=== PATIENT | female | born 1945 | race Hispanic/Latino ===

== ENCOUNTER → 2018-06-07 | Outpatient (CLI) | payer OTHER ==
[~2018-06-07] MED LIST: ATOR20TA65 PO; EMPA25TA PO; GADODIAMIDE 10 MMOL/20 ML ML IV ONE; LOSA50TA25 PO
== END | disposition home or self-care (01) ==
LOC: RAH 10:00
PROVIDERS: ATTEND Internal Medicine Gastroenterology
DX: N28.1 Cyst of kidney, acquired (principal); R74.9 Abnormal serum enzyme level, unspecified; I13.0 Hypertensive heart and chronic kidney disease with heart failure and stage 1 through stage 4 chronic kidney disease, or unspecified chronic kidney disease; E11.22 Type 2 diabetes mellitus with diabetic chronic kidney disease; N18.2 Chronic kidney disease, stage 2 (mild); I50.9 Heart failure, unspecified; E11.42 Type 2 diabetes mellitus with diabetic polyneuropathy; E78.2 Mixed hyperlipidemia
CPT/HCPCS: 74181; A9579

== ENCOUNTER 2018-08-05 08:04 | Day surgery (SDC) | payer OTHER ==
[2018-08-05] VITALS (8 sets, daily range): BP systolic 135–152; BP diastolic 49–69
[~2018-08-05] VITALS: Ht 149.9 cm; Wt 49.7 kg
[~2018-08-05 08:04] MED LIST changes: -GADODIAMIDE 10 MMOL/20 ML ML IV ONE
[2018-08-05 08:33] LABS: BASOPHILS % (AUTO) 1.5 % (0.0-5.0); EOSINOPHILS % (AUTO) 2.1 % (0.0-8.0); HEMATOCRIT 41.6 % (36-48); LYMPHOCYTES % (AUTO) 18.2 % (21.0-51.0); MEAN CORPUSCULAR HEMOGLOBIN 30.1 pg (27.0-33.0); MEAN CORPUSCULAR HGB CONC 33.8 g/dL (32.0-36.0); MONOCYTES % (AUTO) 7.3 % (3.0-13.0); NEUTROPHILS % (AUTO) 70.9 % (40.0-77.0); PLATELET COUNT (AUTO) 211 K/uL (130-400); RED BLOOD CELL COUNT(AUTO) 4.67 MIL/uL (4.00-5.50); RED CELL DISTRIBUTION WIDTH 14.4 % (11.0-15.5); WHITE BLOOD COUNT (AUTO) 5.9 K/uL (4.8-10.8)
[2018-08-05 08:46] LABS: INR 1.01 (0.85-1.15); PARTIAL THROMBOPLASTIN TIME 27.2 SEC (26.3-35.5); PROTHROMBIN TIME 10.6 SEC (9.6-11.6)
[2018-08-05] MEDS ORDERED: SODIUM CHLORIDE 0.9% 1000ML 1,000 ML IV ONE (09:41)
[2018-08-05] MEDS ORDERED: FENTANYL CITRATE PF 50 MCG/1 ML 2ML VIAL ONE (10:50)
[2018-08-05] MEDS ORDERED: MIDAZOLAM HCL 1 MG/ML 2ML VIAL ONE (10:50)
[2018-08-05] MEDS ORDERED: LIDOCAINE HCL MPF 1% 5ML VIAL ONE (13:47)
== END 2018-08-05 14:10 | disposition home or self-care (01) ==
LOC: DAH 08:04 → EDSTATUS 10:00 → DAH 14:10
PROVIDERS: ATTEND Internal Medicine Gastroenterology
DX: K74.0 Hepatic fibrosis (principal); K72.90 Hepatic failure, unspecified without coma; K76.0 Fatty (change of) liver, not elsewhere classified; E11.9 Type 2 diabetes mellitus without complications; I10 Essential (primary) hypertension; Z79.84 Long term (current) use of oral hypoglycemic drugs; Z98.49 Cataract extraction status, unspecified eye; Z79.899 Other long term (current) drug therapy; E78.5 Hyperlipidemia, unspecified; Z90.49 Acquired absence of other specified parts of digestive tract
CPT/HCPCS: 36415; 47000; 76942; 82948; 85025; 85610; 85730; 88307; 99152; A4606; J2250; J3010; J3490; J7030

== ENCOUNTER → 2018-09-26 | Outpatient (CLI) | payer OTHER | END | disposition home or self-care (01) | LOC: RAH 10:41 | PROVIDERS: ATTEND Family Medicine | DX: M21.379 Foot drop, unspecified foot (principal) | CPT/HCPCS: 70450 ==

== ENCOUNTER → 2019-06-27 | Outpatient (CLI) | payer OTHER ==
[~2019-06-27] MED LIST changes: -LOSA50TA25 PO; +LOSA50TA64 PO
== END | disposition home or self-care (01) ==
LOC: RAH 08:44
PROVIDERS: ATTEND Internal Medicine Gastroenterology
DX: N28.1 Cyst of kidney, acquired (principal); R16.0 Hepatomegaly, not elsewhere classified; K74.3 Primary biliary cirrhosis; I70.0 Atherosclerosis of aorta; Z90.49 Acquired absence of other specified parts of digestive tract
CPT/HCPCS: 76700

== ENCOUNTER → 2019-07-25 | Outpatient (CLI) | payer OTHER ==
[~2019-07-25] MED LIST changes: +IOHEXOL 350 MG/ML 100ML INFUS..BTL IV ONE
== END | disposition home or self-care (01) ==
LOC: RAH 08:22
PROVIDERS: ATTEND Internal Medicine Gastroenterology
DX: N28.1 Cyst of kidney, acquired (principal); I70.0 Atherosclerosis of aorta
CPT/HCPCS: 74170; Q9967

== ENCOUNTER 2019-09-09 06:13 | Day surgery (SDC) | payer OTHER ==
[~2019-09-09] VITALS: Ht 152.4 cm; Wt 59.0 kg
[~2019-09-09 06:13] MED LIST changes: +AMLO5TAB9 PO; +ATOR10TA69 PO; -ATOR20TA65 PO; +INSU100I26 SQ; -IOHEXOL 350 MG/ML 100ML INFUS..BTL IV ONE; +LINA5TAB PO; +METF-526 PO; +SODIUM CHLORIDE 0.9% 1000ML 1,000 ML IV ONE; +URSO500T10 PO
[2019-09-09 07:39] VITALS: BP 137/61
[2019-09-09] MEDS ORDERED: PROPOFOL 10 MG/ML 20ML VIAL IV ONE (08:20)
[2019-09-09 08:35] VITALS: BP 144/61
[2019-09-09 08:40] VITALS: BP 122/69
[2019-09-09 08:45] VITALS: BP 102/85
[2019-09-09 08:50] VITALS: BP 124/59
== END 2019-09-09 09:15 | disposition home or self-care (01) ==
LOC: ENDO 06:13 → DAH 06:13 → ENDO 09:15
PROVIDERS: ATTEND Internal Medicine
DX: R10.13 Epigastric pain (principal); K29.50 Unspecified chronic gastritis without bleeding; K21.0 Gastro-esophageal reflux disease with esophagitis; K31.7 Polyp of stomach and duodenum; K26.9 Duodenal ulcer, unspecified as acute or chronic, without hemorrhage or perforation; K44.9 Diaphragmatic hernia without obstruction or gangrene; K57.30 Diverticulosis of large intestine without perforation or abscess without bleeding; K43.9 Ventral hernia without obstruction or gangrene; K76.0 Fatty (change of) liver, not elsewhere classified; K74.3 Primary biliary cirrhosis; E78.5 Hyperlipidemia, unspecified; I10 Essential (primary) hypertension; E11.9 Type 2 diabetes mellitus without complications; Z86.010 Personal history of colon polyps; Z79.84 Long term (current) use of oral hypoglycemic drugs; Z79.899 Other long term (current) drug therapy; Z90.49 Acquired absence of other specified parts of digestive tract; Z98.890 Other specified postprocedural states
CPT/HCPCS: 43239; 82948 ×2; 88305; A4215; A4221; A4222; A4223; A4606; A4620; A4663; J2704; J7030

== ENCOUNTER → 2020-03-18 | Outpatient (CLI) | payer OTHER ==
[~2020-03-18] MED LIST changes: +ALEN70TA69 PO; +AMLO-257 PO; -AMLO5TAB9 PO; +ESOM20CA39 PO; +GLIM4TAB36 PO; -SODIUM CHLORIDE 0.9% 1000ML 1,000 ML IV ONE
== END | disposition home or self-care (01) ==
LOC: RAH 07:49
PROVIDERS: ATTEND Internal Medicine Gastroenterology
DX: K74.3 Primary biliary cirrhosis (principal)
CPT/HCPCS: 76700; 93975

== ENCOUNTER 2020-03-25 05:35 | Day surgery (SDC) | payer OTHER ==
[2020-03-25] VITALS (7 sets, daily range): BP systolic 122–151; BP diastolic 51–62; PULSE 71–76; RESP 16–20; TEMP 96.7–97.8
[2020-03-25] MEDS ORDERED: SODIUM CHLORIDE 0.9% 1000ML 1,000 ML IV ONE (06:09)
[2020-03-25] MEDS ORDERED: PROPOFOL 10 MG/ML 20ML VIAL IV ONE ×2 (07:01)
[2020-03-25] MEDS ORDERED: LIDOCAINE HCL 1% 20 ML VIAL ONE (07:01)
[2020-03-25] MEDS ORDERED: GLYCOPYRROLATE 1 MG/5 ML SYRINGE ONE (07:02)
--- NOTE | 2020-03-25 09:00 | NUR ---
PT DISCHARGED HOME. STABLE. Addendum: 03/25/20 at 0901 by GENARO RUIZ RN RN DISCHARGED AT 0840
== END 2020-03-25 08:55 | disposition home or self-care (01) ==
LOC: DAH 05:35 → ENDO 05:35
PROVIDERS: ATTEND Internal Medicine Gastroenterology
DX: R93.3 Abnormal findings on diagnostic imaging of other parts of digestive tract (principal); K64.0 First degree hemorrhoids; K57.30 Diverticulosis of large intestine without perforation or abscess without bleeding; K74.3 Primary biliary cirrhosis; K21.0 Gastro-esophageal reflux disease with esophagitis; K31.89 Other diseases of stomach and duodenum; K76.0 Fatty (change of) liver, not elsewhere classified; I44.7 Left bundle-branch block, unspecified; I10 Essential (primary) hypertension; E78.5 Hyperlipidemia, unspecified; K21.9 Gastro-esophageal reflux disease without esophagitis; E11.9 Type 2 diabetes mellitus without complications; Z79.84 Long term (current) use of oral hypoglycemic drugs; Z79.899 Other long term (current) drug therapy; Z86.010 Personal history of colon polyps; Z11.59 Encounter for screening for other viral diseases
CPT/HCPCS: 36415; 45378; 82948 ×3; 88305; 88341; 88342; 93005; A4215; A4221; A4222; A4223; A4606; A4620; A4663; J2704 ×2; J3490; J7030; U0003

== ENCOUNTER → 2020-11-16 | Outpatient (CLI) | payer OTHER ==
[~2020-11-16] MED LIST changes: -ALEN70TA69 PO; +ALEN70TA80 PO; -LINA5TAB PO
== END | disposition home or self-care (01) ==
LOC: RAH 07:42
PROVIDERS: ATTEND Internal Medicine Gastroenterology
DX: K76.89 Other specified diseases of liver (principal); K74.3 Primary biliary cirrhosis; R93.2 Abnormal findings on diagnostic imaging of liver and biliary tract; I70.0 Atherosclerosis of aorta; N28.1 Cyst of kidney, acquired
CPT/HCPCS: 76700

== ENCOUNTER 2021-01-11 06:27 | Day surgery (SDC) | payer OTHER ==
[~2021-01-11] VITALS: Ht 149.9 cm; Wt 56.7 kg
[~2021-01-11 06:27] MED LIST changes: +SODIUM CHLORIDE 0.9% 1000ML 1,000 ML IV ONE
[2021-01-11 07:30] VITALS: BP 165/75
[2021-01-11] MEDS ORDERED: GLIP5TAB11 PO ×2 (07:49)
[2021-01-11] MEDS ORDERED: PROPOFOL 10 MG/ML 20ML VIAL IV ONE ×2 (08:42→08:49)
[2021-01-11 08:55] VITALS: BP 101/45
[2021-01-11 09:00] VITALS: BP 111/52
[2021-01-11 09:05] VITALS: BP 119/59
[2021-01-11 09:10] VITALS: BP 124/59
[2021-01-11 09:15] VITALS: BP 126/58
== END 2021-01-11 09:25 | disposition home or self-care (01) ==
LOC: DAH 06:27 → ENDO 06:27
PROVIDERS: ATTEND Internal Medicine
DX: K21.00 Gastro-esophageal reflux disease with esophagitis, without bleeding (principal); K29.70 Gastritis, unspecified, without bleeding; K31.89 Other diseases of stomach and duodenum; K44.9 Diaphragmatic hernia without obstruction or gangrene; I10 Essential (primary) hypertension; E11.9 Type 2 diabetes mellitus without complications; E78.5 Hyperlipidemia, unspecified; R93.2 Abnormal findings on diagnostic imaging of liver and biliary tract; K74.3 Primary biliary cirrhosis; K76.0 Fatty (change of) liver, not elsewhere classified; K64.0 First degree hemorrhoids; Z86.010 Personal history of colon polyps; Z90.49 Acquired absence of other specified parts of digestive tract; Z79.84 Long term (current) use of oral hypoglycemic drugs; Z79.899 Other long term (current) drug therapy; Z20.828 Contact with and (suspected) exposure to other viral communicable diseases
CPT/HCPCS: 43239; 82948 ×2; 93005; A4215; A4221; A4222; A4223; A4606; A4620; A4663; C9803; J2704 ×2; J7030; U0003

== ENCOUNTER → 2021-01-12 | Outpatient (CLI) | payer OTHER ==
[~2021-01-12] MED LIST changes: +GLIP5TAB11 PO; -SODIUM CHLORIDE 0.9% 1000ML 1,000 ML IV ONE
== END | disposition home or self-care (01) ==
LOC: RAH 08:17
PROVIDERS: ATTEND Internal Medicine Gastroenterology
DX: R93.2 Abnormal findings on diagnostic imaging of liver and biliary tract (principal); K74.3 Primary biliary cirrhosis; N28.1 Cyst of kidney, acquired; Z90.49 Acquired absence of other specified parts of digestive tract
CPT/HCPCS: 74170

== ENCOUNTER → 2021-07-12 | Outpatient (CLI) | payer OTHER ==
[~2021-07-12] MED LIST changes: -AMLO-257 PO; -ESOM20CA39 PO; -GLIM4TAB36 PO
== END | disposition home or self-care (01) ==
LOC: RAH 08:33
PROVIDERS: ATTEND Internal Medicine Gastroenterology
DX: N28.1 Cyst of kidney, acquired (principal); R93.2 Abnormal findings on diagnostic imaging of liver and biliary tract; Z90.49 Acquired absence of other specified parts of digestive tract
CPT/HCPCS: 76700

== ENCOUNTER → 2022-03-10 | Outpatient (CLI) | payer OTHER | END | disposition home or self-care (01) | LOC: RAH 07:29 | PROVIDERS: ATTEND Internal Medicine Gastroenterology | DX: K76.0 Fatty (change of) liver, not elsewhere classified (principal); R93.2 Abnormal findings on diagnostic imaging of liver and biliary tract | CPT/HCPCS: 76700; 93975 ==

== ENCOUNTER → 2023-01-17 | Outpatient (CLI) | payer OTHER | END | disposition home or self-care (01) | LOC: RAH 09:11 | PROVIDERS: ATTEND Internal Medicine Gastroenterology | DX: N28.1 Cyst of kidney, acquired (principal); R93.2 Abnormal findings on diagnostic imaging of liver and biliary tract; K76.89 Other specified diseases of liver; K74.3 Primary biliary cirrhosis; Z90.49 Acquired absence of other specified parts of digestive tract | CPT/HCPCS: 76700 ==

== ENCOUNTER → 2024-05-20 | Outpatient (CLI) | payer OTHER ==
[~2024-05-20] MED LIST changes: -GLIP5TAB11 PO; +GLIP5TAB15 PO
== END | disposition home or self-care (01) ==
LOC: SHCH 08:46
PROVIDERS: ATTEND Internal Medicine Cardiovascular Disease
DX: I87.2 Venous insufficiency (chronic) (peripheral) (principal); R94.31 Abnormal electrocardiogram [ECG] [EKG]; R07.9 Chest pain, unspecified; I73.9 Peripheral vascular disease, unspecified; I87.1 Compression of vein
CPT/HCPCS: 93306; 93925; 93970

== ENCOUNTER → 2024-05-23 | Outpatient (CLI) | payer OTHER ==
[2024-05-23] MEDS: REGADENOSON 0.4 MG/5 ML PF SYG IVP ONE (12:11)
== END ==
LOC: SHCH 07:47
PROVIDERS: ATTEND Internal Medicine Cardiovascular Disease
DX: R94.31 Abnormal electrocardiogram [ECG] [EKG] (principal); R07.9 Chest pain, unspecified
CPT/HCPCS: 78452; 93017; J2785; A9500 ×2; 96374